=== PATIENT | male | born 1980 | race Caucasian/White ===

== ENCOUNTER 2018-02-18 17:44 | Emergency (ER) | payer OTHER ==
[~2018-02-18] VITALS: Ht 182.9 cm; Wt 85.8 kg
[2018-02-18] MEDS ORDERED: FLEXERIL10 MG PO (18:04)
[2018-02-18] MEDS ORDERED: MEDROL DOSEPAK4 MG PO (18:04)
[2018-02-18] MEDS ORDERED: NORCO 5/3251 TABLET PO (18:04)
[2018-02-18 18:30] VITALS: BP 137/102
== END 2018-02-18 18:32 | disposition home or self-care (01) ==
LOC: EME 17:44
DX: S39.012A Strain of muscle, fascia and tendon of lower back, initial encounter (principal); X50.0XXA Overexertion from strenuous movement or load, initial encounter; M51.36 Other intervertebral disc degeneration, lumbar region; M51.26 Other intervertebral disc displacement, lumbar region; F17.200 Nicotine dependence, unspecified, uncomplicated
CPT/HCPCS: 99281; 99283; J7512